=== PATIENT | male | born 1975 | race Caucasian/White ===

== ENCOUNTER 2017-11-12 03:13 | Observation (INO) ==
[2017-11-12] MEDS ORDERED: NS 1,000 ML IV ONE (03:25)
[2017-11-12] MEDS ORDERED: ASPIRIN 81 MG CHEWABLE TABLET PO ONE (03:25)
[2017-11-12] MEDS ORDERED: NITROGLYCERIN 0.4 MG SUBLINGUAL TABLET SL PRN (03:25)
--- NOTE | 2017-11-12 03:29 | Emergency Department Report ---
Chest Pain HPI - General Stated Complaint: chest pain Time Seen by Provider: 11/12/17 03:18 Source: patient, RN notes reviewed, old records reviewed Mode of arrival: ambulatory Limitations: no limitations - History of Present Illness HPI narrative: 42yo man presents to the ER this AM for evaluation of chest pain. Pt awoke at 0100 this AM with epigastric pain. Pain was 'achy' and 'squeezing'. Denies palliative or provoking factors. Tried a tums for presumptive heartburn without relief. Has a h/o HTN, but denies other PMHx. Has never had sx like this before. MD complaint: chest pain Occurred At: home Onset (ago): hour(s) (2.5) Time: 0100 Duration: constant, now resolved Onset: awoke with symptoms Pain location: epigastric Severity: moderate Severity scale (1-10): 5 Quality: tightness, aching Pain radiation: none Relieving factors: nothing Exacerbating factors: nothing Aspirin Today: 81 mg x 4, provided by ED Nitro Today: 0.4 mg x 1, provided by ED Treatments prior to arrival chest pain: other (TUMS) - Related Data Home Medications Medication Instructions Recorded Confirmed No known Home medications [No home 11/12/17 11/12/17 meds] Allergies Allergy/AdvReac Type Severity Reaction Status Date / Time No Known Allergies Allergy Verified 11/12/17 03:57 Review of Systems All systems: reviewed and negative except as stated Cardiovascular: Reports: as per HPI, chest pain. Denies: palpitations, dyspnea on exertion, orthopnea, edema, syncope, paroxysmal nocturnal dyspnea Gastrointestinal: Reports: as per HPI, abdominal pain. Denies: nausea, vomiting , diarrhea, constipation, hematemesis, melena, hematochezia [facility] Medical History Updates: HTN Physical Exam - Limitations Limitations: no limitations - General General appearance: alert, in no apparent distress, obese - Normal Exams: Head:: Normocephalic without trauma Eyes:: Pupils are PERRLA w/ EOMI, No scleral icterus, irritation, or foreign bodies noted ENMT:: No facial trauma, nasal exudates, pharyngeal erythema, or exudates are noted Neck:: Full range of motion, without adenopathy Chest/Respirations:: Clear all villarreal, with good airflow, and symmetry bilaterally Cardiovascular:: Regular rate and rhythm, without murmur or gallop, Pulses 2+ all extremities, capillary refill, <2 seconds all extremities Abdomen:: Bowel sounds positive, soft, non-tender, non-distended, no hepatosplenomegaly, masses or bruits noted Lymphatic:: No lymphadenopathy Musculoskeletal:: No tenderness, or deformity noted Integumentary:: No rashes, hives, or bruising noted Neurological:: Patient is alert, and oriented Psychiatric:: Patient exhibits, appropriate attention Course - Consultations Consultation #1: Telehospitalist: Will admit for overnight obs and troponin trending. Time: 04:07 Vital Signs Temperature 97.7 F 11/12/17 03:13 Pulse Rate 76 11/12/17 03:13 Respiratory Rate 20 11/12/17 03:13 Blood Pressure 142/90 H 11/12/17 03:13 Pulse Oximetry 94 11/12/17 03:13 Temperature 97.7 F 11/12/17 03:13 Pulse Rate 76 11/12/17 03:13 Respiratory Rate 20 11/12/17 03:13 Blood Pressure 142/90 H 11/12/17 03:13 Pulse Oximetry 94 11/12/17 03:13 Chest Pain - MDM Narrative Medical decision making narrative: Pt with 'typical CP' story, sx relieved by nitro, but not by TUMS. Pt is the right age and has the right PMHx for ACS. Discussed with tele-hospitalist, who will admit for overnight obs and troponin trending. - Differential Diagnosis Likely: stable angina, unstable angina pectoris, atypical chest pain, st elevation myocardial infarction, costochondritis, chest pain - Medical Records Data Attestation: I reviewed the patient's medical records. - Lab Data Attestation: I reviewed the patient's lab results. Result diagrams: 11/12/17 03:33 11/12/17 03:33 Lab Results 11/12/17 11/12/17 Range/Units 03:33 03:33 WBC 6.6 (4.5-11.0) T/MM3 RBC 5.58 (4.50-5.90) M/MM3 Hgb 16.5 (13.5-17.5) GM/DL Hct 45.6 (41-53) % MCV 81.7 (80-100) UM3 MCH 29.6 (26-34) UUG MCHC 36.2 (31-37) GM/DL RDW Std Deviation 37.2 (36.9-50.2) FL Plt Count 214 (130-400) T/MM3 MPV 9.5 (9.4-12.4) UM3 Immature Gran % (Auto) 0.0 (0.0-0.5) % Neut % (Auto) 45.7 (33-66) % Lymph % (Auto) 35.6 (23-45) % [place] % (Auto) 11.5 H (0-9.0) % Eos % (Auto) 6.6 H (0-4) % Baso % (Auto) 0.6 (0-2) % Neut # (Auto) 3.0 (1.8-7.7) T/MM3 Lymph # (Auto) 2.3 (1-4.8) T/MM3 [place] # (Auto) 0.8 (0-0.8) T/MM3 Eos # (Auto) 0.4 (0-0.5) T/MM3 Baso # (Auto) 0.0 (0-0.2) T/MM3 Abs Immat Gran (auto) 0.00 (0.00-0.03) T/MM3 Turbidity < 20 (0-20) Sodium 142 (134-144) MEQ/L Potassium 3.9 (3.6-5) MEQ/L Chloride 103 (98-107) MEQ/L Carbon Dioxide 26 (22-30) MEQ/L Anion Gap 13 (5-15) MEQ/L BUN 15.0 (9-20) MG/DL Creatinine 0.9 (0.8-1.5) MG/DL GFR Calculation 93 BUN/Creatinine Ratio 17 (6-26) RATIO Glucose 126 H (75-110) MG/DL Calculated Osmolality 276 (261-280) MOSM/KG Calcium 9.7 (8.4-10.2) MG/DL Icterus Index < 2 (0-7) Troponin I < 0.012 (0-0.12) ng/ml B-Natriuretic Peptide 12.3 (0-175) pg/mL Specimen Hemolysis < 15 (0-25) - Radiology Data Attestation: I reviewed the patient's radiology results. CXR: Stable chest. No acute CT pathology. - EKG Data EKG #1 EKG attestation: Yes: I reviewed and interpreted this EKG. EKG shows normal: sinus rhythm, axis, intervals, QRS complexes, ST-T waves Rate: normal Interpretation: normal EKG Disposition Clinical Impression: Chest pain Qualifiers: Chest pain type: unspecified Qualified Code(s): R07.9 - Chest pain, unspecified Disposition: 02 To [facility] Print Language: Yi Condition: Improved Prescriptions: No Action No known Home medications [No home meds] 0 [facility] Referrals: Nehemiah Bennett MD [Primary Care Provider] - Time of Disposition: 04:09 - Seen By: physician
[2017-11-12] MEDS: SALINE FLUSH 10ml SYRINGE IVF PRN ×3 (03:41→14:23)
[2017-11-12] MEDS ORDERED: MORPHINE SULFATE 10 MG SYRINGE IVP PRN (04:23)
[2017-11-12] MEDS ORDERED: PANTOPRAZOLE 40 MG INJECTION IVP ONE (04:23)
--- NOTE | 2017-11-12 05:17 | History & Physical Report ---
History of Present Illness Date: 11/13/17 Chief complaint: chest pain HPI: This is a 42 y/o male with recently described hypertension that is being managed by diet and excercise currently. Patient awoken tonight with chest pressure , substernal, no radiation. Possibly had 2 yrs ago. The patient's symptoms persisted for over 2 hours. no diaphoresis, no nausea, no vomiting, no shortness of breath, no pnd, no orthopnea. In the ED the workup was non ischemic. Risks include HTN and family history. The patient will be admitted for rule out and stress this am. Review of Systems Review of systems: no headache, no ear pain, slight congestion, no sore throat, no cough, no congestion, no abdomen pain, no nausea or vomiting, no change in bm, no urine sx , no neuro sx, no skin rashes. 12 point ROS otherwise neg except for outlined above. Past Medical History Medical History Updates: HTN Surgical History: appendectomy, ACL and MCL repair knee, Family History Updates: mother alive with CAD, father alive with recent PPM placement - Social History Smoking status: Never smoker Substance use type: does not use Alcohol intake frequency: does not drink Housing: house Household members: spouse, children service: No Current occupational status: employed Social history: note the patient has 6 children aged 17,16,14 9,9, 5 Medications Home Medications Medication Instructions Recorded Confirmed Type No known Home medications [No home 11/12/17 11/12/17 History meds] Allergies Allergy/AdvReac Type Severity Reaction Status Date / Time No Known Allergies Allergy Verified 11/12/17 03:57 Exam Vital Signs: Temperature 97.7 F 11/12/17 03:13 Pulse Rate 70 11/12/17 04:55 Respiratory Rate 18 11/12/17 04:55 Blood Pressure 122/80 11/12/17 04:55 Pulse Oximetry 96 11/12/17 04:55 Telemetry Rhythm: Sinus Rhythm - Constitutional Present: no acute distress, well nourished, well developed, obese, cooperative - Routine HEENT Exam Head: Present: normocephalic, atraumatic Eye: Present: EOMI, conjunctivae pink ENT: Present: mucous membranes moist - Routine Neck Exam Present: supple, full ROM. Absent: JVD - Routine Respiratory Exam Present: CTA bilaterally. Absent: rales, respiratory distress, rhonchi, wheezes - Routine Cardiovascular Exam Present: RRR, no murmur. Absent: gallop, rubs, S3 - Routine Abdominal Exam Present: soft, normoactive bowel sounds, non distended, non tender - Routine Extremities Exam Present: no edema, non tender, full ROM - Routine Back/Spine/Pelvis Exam Back/Spine: Present: full ROM - Routine Skin Exam Present: intact - Routine Neurological Exam Present: alert, oriented X3, CN II-XII intact. Absent: motor deficit - Routine Psychiatric Exam Present: normal affect, normal thought process Results - Labs CBC & Chem 7: 11/12/17 03:33 11/12/17 03:33 Labs: reviewed and reasuring - ECG Data Tracing #1 sinus without ischemic changes - Imaging and Cardiology Chest x-ray Additional comments: no acute cardiopulmonary process Assessment and Plan (1) Chest pain Status: Acute (2) Hypertension Status: Acute Assessment and Plan: 1. chest pain acute POA: rule out on tele, exercise thal this am. asapirin, ppi, DDX: GERD, MS, pleuresy, unstable angina. reassess after results of stress known. 2. HTN chronic POA: diet controlled, monitro 3. DVT ppx: SCD, lovenox 4. GI ppx; ppi Addendum by Dr. Chandler: Seen and examined patient on same day as the above note. Agree with history, physical, assessment and plan. Comprehensive physical findings correlate to the above note. Patient has remained pain-free over the course the day and troponins have remain negative. Cardiology has seen. I agree with the order of the stress test being done on an outpatient basis as patient is very low risk given age, risk factors and presentation of the chest pain. Documented on Dragon speech to text. Efforts to correct speech recognition errors performed, but variation may exist DVT Prophylaxis: SCD's, Lovenox GI Prophylaxis: Protonix Resuscitation Status: Full Code - Time spent with patient Time with patient PN: 30 minutes - Physician Narrative Narrative: Date: 11/12/17 Time: 0513 Hospital Course Summary Disclaimer: The visit summary below is not to be considered part of the above Progress Note.
[2017-11-12 07:30] VITALS: BMI 32.6
--- NOTE | 2017-11-12 08:09 | XRay Report ---
EXAM: XR chest 1V HISTORY: CP COMPARISON: No available studies for comparison. FINDINGS: The cardiomediastinal silhouette is normal. The mediastinum is not widened. The trachea is midline. The pulmonary vascularity is not engorged. The lung villarreal are mildly hypoventilated demonstrating mild increased interstitial markings at the lung bases. No acute focal infiltrates are identified. The costophrenic angles are sharp. The bony thorax is unremarkable. There is artifact from cardiac monitoring lead wires over the chest. IMPRESSION: 1. The lung villarreal are hypoventilated showing linear atelectasis at the lung bases. 2. No acute focal infiltrates are identified. .
[2017-11-12] MEDS ORDERED: ASPIRIN 81 MG CHEWABLE TABLET PO SCH (09:00)
[2017-11-12] MEDS ORDERED: INFLUENZA VAC QIV 2017-18 (Fluarix*)(>=3yo) 0.5ml IM ONE (09:22)
--- NOTE | 2017-11-12 11:25 | Cardiology Consult Note ---
<Anitra Torres - Last Filed: 11/12/17 11:20> History of Present Illness Consult date: 11/12/17 Requesting physician: Bob Chandler Consult reason: chest pain Chief complaint: chest pain History of present illness: Chely is a 42 year old male who is a patient of Dr. Bennett who was recently diagnosed with HTN but is trying to control BP with lifestyle changes. He was brought to the ED this AM for evaluation of chest pain. He reportedly awoke at 0100 this AM with midsternal pain. Pain was 'tight' and 'squeezing'. Denies palliative or provoking factors. He reportedly took a Tums for presumptive heartburn without relief. He had no associated symptoms such as dyspnea, diaphoresis, nausea or radiation of pain. He was admitted to the hospitalist to rule out ID, Dr. Kelly is consulted for further evaluation and we appreciate the consult. He is examined in his room on the surgical unit. He denies recent illness, fever , chills, cough, sore throat, dyspnea, palpitations, N/V/D, dysuria, rash Review of Systems - Constitutional Constitutional: Present: as per HPI. Absent: chills, fever(s) - EENMT Eyes: Absent: change in vision Balance: Absent: vertigo Mouth/Throat: Absent: sore throat - Cardiovascular Cardiovascular: Present: chest pain. Absent: palpitations, syncope, dyspnea on exertion, orthopnea Vascular: Absent: pedal edema - Respiratory Respiratory: Absent: cough, dyspnea, dyspnea on exertion - Gastrointestinal Gastrointestinal: Absent: abdominal pain, constipation, diarrhea, nausea, vomiting - Genitourinary Genitourinary: Absent: dysuria - Integumentary/Breasts Integumentary: Absent: rash - Neurological Neurological: Absent: dizziness - Endocrine Endocrine: Absent: palpitations PFSH Medical History Updates: HTN Surgical History: appendectomy, ACL and MCL repair knee, Family History: Mother - ID at 65, still living Father - Syncope and PPM age 72, still living - Social History Smoking status: Never smoker Substance use type: does not use Alcohol intake frequency: does not drink Household members: spouse, children Current occupational status: employed Current occupation: manager [employer] Does patient use chewing tobacco?: No Current residence: Apartment/Private Home Medications Home Medications Medication Instructions Recorded Confirmed Type No known Home medications [No home 11/12/17 11/12/17 History meds] Allergies Allergy/AdvReac Type Severity Reaction Status Date / Time No Known Allergies Allergy Verified 11/12/17 03:57 Exam Vital signs: Temperature 97.7 F 11/12/17 07:59 Pulse Rate 67 11/12/17 08:00 Respiratory Rate 12 11/12/17 07:59 Blood Pressure 139/70 11/12/17 07:59 Pulse Oximetry 96 11/12/17 07:59 - Constitutional no acute distress, well nourished, cooperative - Routine HEENT Exam Head: Present: normocephalic ENT: Present: mucous membranes moist - Routine Neck Exam Absent: JVD, carotid bruit - Routine Chest/Breast/Axilla Exam Chest wall: Absent: tenderness - Routine Respiratory Exam Present: CTA bilaterally. Absent: rales, wheezes - Routine Cardiovascular Exam Present: RRR, no murmur. Absent: JVD - Routine Abdominal Exam Present: soft, normoactive bowel sounds - Routine Extremities Exam Present: no edema, pulses intact - Routine Skin Exam Present: intact, dry, warm - Routine Neurological Exam Present: alert, oriented X3 - Routine Psychiatric Exam Present: normal affect, normal thought process Results 11/12/17 03:33 11/12/17 03:33 Cardiac Enzymes 11/12/17 Range/Units 09:30 Troponin I < 0.012 (0-0.12) ng/ml Intake and Output 11/11/17 11/12/17 11/12/17 22:59 06:59 14:59 Intake Total 1000 / 1000 Balance 1000 / 1000 Intake: IV 1000 / 1000 Ns 1,000 ml @ 1000 mls/hr IV . 1000 / 1000 Q1H ONE Rx#:[id number] Oral 0 / 0 Other: # Voids 1 Weight 221 lb 5.506 oz Patient Weight 11/13/17 06:59 Weight 221 lb 5.506 oz - Imaging and Cardiology Echo: pending Imaging & Cardiology Narrative: = = = = = = = = = = = = = = = = = = = = = = = = = = = = = = = = = = = = = = = = = = = = = = = = = = = = = = = = = = = Date of Exam: 11/12/17 Ordering Provider: May, Jasmeet M DO Type of Exam(s): XR chest 1V Reason for Exam(s): CP EXAM: XR chest 1V HISTORY: CP COMPARISON: No available studies for comparison. FINDINGS: The cardiomediastinal silhouette is normal. The mediastinum is not widened. The trachea is midline. The pulmonary vascularity is not engorged. The lung villarreal are mildly hypoventilated demonstrating mild increased interstitial markings at the lung bases. No acute focal infiltrates are identified. The costophrenic angles are sharp. The bony thorax is unremarkable. There is artifact from cardiac monitoring lead wires over the chest. IMPRESSION: 1. The lung villarreal are hypoventilated showing linear atelectasis at the lung bases. 2. No acute focal infiltrates are identified. 11/12/17 11:30 - EKG Interpretation EKG: sinus rhythm EKG interpretations - EKG EKG results cardiology: sinus rhythm Assessment and Plan - Assessment and Plan (1) Chest pain Status: Acute midsternal pain, 'tight' and 'squeezing'. - no associated symptoms such as dyspnea, diaphoresis, nausea or radiation of pain. - relieved by Asa. SL nitro - EKG SR, normal - Troponin negative X2, trend - Stress test ordered by hospitalist, could be done outpatient - 2d Echo today (2) Hypertension Status: Acute New diagnosis - 2 weeks ago - Plans to change lifestyle, diet and exercise before starting antihypertensive medications. - Assessment and Plan midsternal pain, 'tight' and 'squeezing'. - no associated symptoms such as dyspnea, diaphoresis, nausea or radiation of pain. - relieved by Asa. SL nitro - EKG SR, normal - Troponin negative X2, trend - Stress test ordered by hospitalist, could be done outpatient - 2d Echo today Thank you for allowing us to participate in the care of this patient. Hospital Course Summary Disclaimer: The visit summary below is not to be considered part of the above Progress Note. <Aries Kelly - Last Filed: 11/14/17 11:30> Exam Vital signs: Temperature 97.6 F 11/12/17 15:52 Pulse Rate 81 11/12/17 16:00 Respiratory Rate 16 11/12/17 15:52 Blood Pressure 152/89 H 11/12/17 15:52 Pulse Oximetry 98 11/12/17 15:52 Results 11/12/17 03:33 11/12/17 03:33 Assessment and Plan - Attestation Attestation Narrative: 11/14/17 11:29 Recommendation After examining the patient I agree with the above assessment. I am involved in the formulation of the patient's plan of care. - Assessment and Plan (1) Chest pain Status: Acute (2) Hypertension Status: Acute Hospital Course Summary Disclaimer: The visit summary below is not to be considered part of the above Progress Note.
[2017-11-12 15:54] VITALS: BP 152/89; RESP 16; TEMP 97.6; O2SAT 98
[2017-11-12 16:05] VITALS: PULSE 81
--- NOTE | 2017-11-12 19:11 | Echocardiogram ---
DATE OF PROCEDURE November 12, 2017 This is a two-dimensional echo with spectral Doppler, color-flow and M-mode. It was obtained in a patient with chest pain. Left atrial dimension is normal. Left ventricular end-diastolic dimension is normal. Left ventricular wall thickness is normal. LV systolic function is normal with ejection fraction of about 55%. Right atrium is normal. Right ventricle is normal. Aortic root dimension is normal. Mitral valve is morphologically normal with trace of mitral regurgitation. Aortic valve is a trileaflet structure with no stenosis or insufficiency. Tricuspid valve shows mild tricuspid regurgitation with normal estimated pulmonary artery systolic pressure of 28. Pulmonary valve shows no pulmonary insufficiency. There is no pericardial effusion. IMPRESSION 1. Normal LV systolic function with ejection fraction of about 55%. 2. Trace of mitral regurgitation. 3. Mild tricuspid regurgitation with normal estimated pulmonary artery systolic pressure of 28. MTDD
== END 2017-11-12 17:50 | disposition home or self-care (01) ==
LOC: SRG 03:13 → ED 03:13 → SRG 04:45
PROVIDERS: ADMIT Emergency Medicine; ATTEND Family Medicine